=== PATIENT | female | born 1990 | race Caucasian/White ===

== ENCOUNTER 2016-12-09 15:41 | Emergency (ER) | payer OTHER ==
--- NOTE | 2016-12-09 16:10 | ED Physician Documentation ---
General Adult - HISTORIAN Historian: patient - HPI Chief Complaint: General Adult Further Comments: yes (26 year old female patient presents with complaint of not feeling well. States she has not been out of bed today. Was seen in the Er at [facility] last night with acute asthma exceration. Patient reported dizziness when filling out registration forms. C/O numbness and tingling in arms and legs.) - ROS CONST: no problems EYES/ENT: none CVS/RESP: other (asthma) GI/: none MS/SKIN/LYMPH: none NEURO/PSYCH: dizziness, tingling, numbness. denies: headache, fainting, difficulty walking, difficulty with speech, anxiety, depression - PAST HX Past History: asthma, other (Mirena) Allergies/Adverse Reactions: Allergies Allergy/AdvReac Type Severity Reaction Status Date / Time No Known Drug Allergies Allergy Verified 05/12/16 06:14 Home Medications: Ambulatory Orders Medication Instructions Recorded Albuterol Sulfate [Ventolin HFN] 2.5 mg NEB Q4 #200 ml 05/12/16 Fexofenadine HCl [Fexofenadine HCl] 180 mg PO D 05/12/16 Ipratropium/Albuterol Sulfate 3 ml NEB Q6H PRN #120 ampul.neb 05/12/16 [Duoneb] Montelukast Sodium [Singulair] 10 mg PO DAILY #30 tablet 05/12/16 predniSONE [Deltasone] 20 mg PO BID #10 tablet 05/12/16 - SOCIAL HX Smoking History: non-smoker - FAMILY HX Family History: No - VITAL SIGNS Vital Signs: Vital Signs Temp Pulse Resp BP Pulse Ox 118/68 05/12/16 20:48 - REVIEWED ASSESSMENTS Nursing Assessment Reviewed: Yes Vitals Reviewed: Yes Progress - Progress Progress: Records obtained from [facility] ER last night, records obtained. Patient recieved 125mg of IV solumedrol. Likely cause of leukocytosis, patient denies any fever or chills, no fever in ER. Reviewed lab results with patient and , questions answered. - EKG/XRAY/CT EKG: rhythm (ST, no acute changes or ectopy, rate 99) ED Results Lab/Radiology - Orders Orders: ED Orders Category Date Time Status Place IV Lock 1T Care 12/09/16 16:01 Ordered CBC/PLATELET/DIFF Stat Lab 12/09/16 16:01 Ordered CMP Stat Lab 12/09/16 16:01 Ordered UA W/MICRO IF INDICATED Stat Lab 12/09/16 16:01 Ordered 0.9 % Sodium Chloride [Normal Saline] 1,000 ml Med 12/09/16 16:01 Ordered IV NOW EKG WITH COMPARISON Stat Ther 12/09/16 15:58 Ordered General Adult Physical Exam - PHYSICAL EXAM GENERAL APPEARANCE: mild distress (ill appearing) RESPIRATORY: no resp distress, chest non-tender, breath sounds normal CVS: reg rate & rhythm, heart sounds normal, equal pulses, no murmur, no gallop , PMI nml, no JVD, no friction rub, 24 ABDOMEN: soft, no organomegaly, normal bowel sounds, no abdominal bruit, no distension SKIN: normal color, warm/dry, NR, INT, PAL, DR EXTREMITIES: non-tender, normal range of motion, no evidence of injury, no edema , J, INSTRUMENT MECHANIC NEURO: oriented X3, CN's nml as tested, motor nml, sensation nml, mood/affect nml Discharge Clincal Impression: Dizziness Fatigue Qualifiers: Fatigue type: unspecified Qualified Code(s): R53.83 - Other fatigue Referrals: Yon Guillen MD [Primary Care Provider] - 2 Days Home Medications: Ambulatory Orders Albuterol Sulfate [Ventolin HFN] 2.5 mg NEB Q4 #200 ml 05/12/16 Fexofenadine HCl [Fexofenadine HCl] 180 mg PO D 05/12/16 Ipratropium/Albuterol Sulfate [Duoneb] 3 ml NEB Q6H PRN #120 ampul.neb 05/12/16 Montelukast Sodium [Singulair] 10 mg PO DAILY #30 tablet 05/12/16 predniSONE [Deltasone] 20 mg PO BID #10 tablet 05/12/16 Condition: Stable Disposition: 01 HOME, SELF-CARE Decision to Admit: NO Decision Time: 17:30
[2016-12-09] MEDS: 0.9 % SODIUM CHLORIDE 1,000 ML IV ONE (16:15)
[2016-12-09 16:20] LABS: BASOPHILS % 0.3 (0.0-1.5); EOSINOPHILS % 0.4 % (0.0-6.8); MEAN CORPUSCULAR HEMOGLOBIN 30.4 pg (28.0-34.0); MEAN CORPUSCULAR VOLUME 86.6 fl (80.0-100.0); MONOCYTES % 5.3 % (0.0-11.0)
[2016-12-09 16:35] LABS: eGFR (African) > 60; eGFR (Non-African) > 60
[2016-12-09] MEDS: ACETAMINOPHEN 500 MG TABLET PO ONE (17:22)
[2016-12-09 17:47] VITALS: BP 103/68
--- NOTE | 2016-12-09 20:30 | Diagnostic Imaging Report ---
FERDINAND MUNGUIA (SILK SCREEN LAYOUT DRAFTER) - ER~ [facility] [address] [facility].[address] [address] ~ ~ ~ ~ Report Submission Date: Dec 09, 2016 5:08:39 PM CDT Patient ~ Study Name: KAYLA PATTERSON ~ Date: Dec 09, 2016 4:48:59 PM CDT ~ Modality Type: CR Gender: F ~ Description: CHEST : 88 ~ Institution: [facility] Physician: FERDINAND MUNGUIA (SILK SCREEN LAYOUT DRAFTER) - ER ~ ~ ~ ~ Chest 2 views History: Dyspnea and leukocytosis Findings: The lungs are clear and well expanded without infiltrate or pleural effusion. Heart size and pulmonary vascularity are normal. Osseous structures are grossly intact. Impression: No acute abnormality. ~ Electronically signed on Dec 09, 2016 5:08:39 PM CDT by: Justin PALACIOS
[2016-12-10 05:59] LABS: APPEARANCE,URINE CLEAR (CLEAR); COLOR,URINE YELLOW (YELLOW); OCCULT BLOOD,URINE TRACE-INTACT (NEGATIVE); PH URINE 8.5 (5.0 - 8.0); URINE HCG NEGATIVE (NEGATIVE); UROBILINOGEN URINE 0.2 Eu (0.2-1.0)
== END 2016-12-09 17:45 | disposition home or self-care (01) ==
LOC: ED 15:41
DX: R42 Dizziness and giddiness (principal); R53.83 Other fatigue
CPT/HCPCS: 71020; 80053; 81002; 81025; 85025; 86308; J7030; 99283; S1016

== ENCOUNTER 2017-04-16 13:13 | Emergency (ER) | payer OTHER ==
[2017-04-16] MEDS: ALBUTEROL SULFATE 2.5 MG/3 ML AMPUL.NEB NEB ONE (13:29)
[2017-04-16 13:35] VITALS: BP 111/71
[2017-04-16] MEDS ORDERED: BUDESONIDE 0.5MG/2ML AMPUL.NEB NEB ONE (13:48)
[2017-04-16] MEDS ORDERED: IPRATROPIUM/ALBUTEROL SULFATE 3 ML AMPUL.NEB NEB ONE (13:48)
[2017-04-16] MEDS: IPRATROPIUM/ALBUTEROL SULFATE 3 ML AMPUL.NEB NEB STA (13:49)
[2017-04-16] MEDS: BUDESONIDE 0.5MG/2ML AMPUL.NEB NEB SCH (14:02)
--- NOTE | 2017-04-16 14:12 | ED Physician Documentation ---
Dyspnea - HISTORIAN Historian: patient - HPI Stated Complaint: wheezing Chief Complaint: Dyspnea Initiating Event: upper respiratory illness Severity: moderate Exacerbated By: exertion, laying flat, coughing Associated Symptoms: chills Further Comments: yes (27 year old female patient presents with complaints of wheezing. States she used her nebulizer at 0600 and her proair with no improvement. Patient states she is 12 weeks . LMP unknown, Due date ) - ROS CONST: no problems EYES/ENT: none - PAST HX Lung Disease: asthma Cardiac Disease: none PE Risk Factors: none Allergies/Adverse Reactions: Allergies Allergy/AdvReac Type Severity Reaction Status Date / Time azithromycin Allergy Verified 04/16/17 13:24 [From Zithromax Z-Rolan] No Known Drug Allergies Allergy Verified 05/12/16 06:14 Home Medications: Ambulatory Orders Medication Instructions Recorded Albuterol Sulfate [Ventolin HFN] 2.5 mg NEB Q4 #200 ml 05/12/16 Ipratropium/Albuterol Sulfate 3 ml NEB Q6H PRN #120 ampul.neb 05/12/16 [Duoneb] Cephalexin [Keflex] 500 mg PO TID #30 capsule 04/16/17 - SOCIAL HX Smoking History: non-smoker - FAMILY HX Family History: denies: none - VITAL SIGNS Vital Signs: Vital Signs Temp Pulse Resp BP Pulse Ox 98.4 F 92 H 22 111/71 96 04/16/17 13:30 04/16/17 13:30 04/16/17 13:30 04/16/17 13:30 04/16/17 13:30 - REVIEWED ASSESSMENTS Nursing Assessment Reviewed: Yes Vitals Reviewed: Yes Progress - Progress Progress: Patient stopped her singulair and jaye last year. Education on causes of asthma and importance of taking a daily allergy medication. BBS improved after albuterol, faint expiratory wheezes. Duoneb and pulmicort given in ER. Will not prescribe steroid at this time. Instructed patient to increase nebulizer frequency and start daily allergy meds. Follow up with PCP next week if symptoms do not improve. ED Results Lab/Radiology - Orders Orders: ED Orders Category Date Time Status Albuterol Sulfate [Ventolin] Med 04/16/17 13:24 Discontinued 2.5 mg NEB NOW ONE Budesonide [Pulmicort] Med 04/16/17 13:48 Discontinued 0.5 mg NEB .STK-MED ONE Budesonide [Pulmicort] Med 04/16/17 13:50 Ordered 0.5 mg NEB BID Ipratropium/Albuterol Sulfate [Duoneb] Med 04/16/17 13:48 Discontinued 3 ml NEB .STK-MED ONE Ipratropium/Albuterol Sulfate [Duoneb] Med 04/16/17 13:50 Discontinued 3 ml NEB STAT STA Dyspnea Physical Exam - EXAM General Appearance: mild distress EENT: eye inspection normal, REJI Respiratory: no resp. distress, no pain on inspiration, speaks full sentences, wheezes (expiratory through out, anterior and posterior) CVS: reg. rate & rhythm, no murmur, no gallop, no friction rub, pulses full, pulses equal Abdomen: non-tender, no organomegaly, no distention, no ascites Skin: color nml, no rash, warm, nml palp., dry Extremities: non-tender, normal range of motion, no evidence of injury, no edema , J, DIGITAL MARKETING ASSOCIATE Neuro/Psych: oriented x3, CN's nml as tested, motor nml, sensation nml, mood/ affect nml Discharge Clincal Impression: Asthma exacerbation Qualifiers: Weeks of gestation: 12 weeks Qualified Code(s): Z3A.12 - 12 weeks gestation of Prescriptions: Cephalexin [Keflex] 500 mg PO TID #30 capsule Referrals: Yon Guillen MD [Primary Care Provider] - 2 Days Additional Instructions: Start a DAILY allergy medication - Jaye or claritan Increase your albuterol nebulizer to every 4 hours as needed for wheezing and SOB If you do not improve by Tuesday, see your primary care doctor. You may need a steroid. Condition: Stable Disposition: 01 HOME, SELF-CARE Decision to Admit: NO Decision Time: 14:06
== END 2017-04-16 14:16 | disposition home or self-care (01) ==
LOC: ED 13:13
DX: J45.901 Unspecified asthma with (acute) exacerbation (principal); Z3A.12 12 weeks gestation of pregnancy
CPT/HCPCS: J7626 ×2; 99283